=== PATIENT | male | born 1950 | race Caucasian/White ===

== ENCOUNTER 2025-10-09 05:53 | Emergency (ER) | payer OTHER ==
[2025-10-09] MEDS ORDERED: Ketamine 50 MG/ML (10ML VIAL) ONE (06:00)
[2025-10-09 06:16] LABS: #Basophils 0.2 thou/uL (0.0-0.2); #Eosinophils 0.2 thou/uL (0.0-0.7); #Lymphocytes 5.3 thou/uL (1.20-3.40); #Monocytes 0.5 thou/uL (0.11-0.59); #Neutrophils 6.7 thou/uL (1.40-6.50); %Basophils 1.5 % (0.0-1.0); %Eosinophils 1.4 % (0.0-10.0); %Lymphocytes 41.6 % (21.0-51.0); %Monocytes 3.6 % (0.0-10.0); %Neutrophils 52.0 % (42.0-75.0); Hematocrit 40.2 % (42.0-52.0); Hemoglobin 12.7 g/dL (14.0-18.0); Mean Corpuscular Hemoglobin 30.6 pg (27.0-31.0); Mean Corpuscular Volume 97.1 fl (78.0-98.0); Platelet Count 110 10x3/uL (130-400); Red Blood Cell (RBC) Count 4.13 mill/uL (4.70-6.10); White Blood Cell (WBC) Count 12.8 10x3/uL (4.8-10.8)
[2025-10-09 06:23] LABS: Anisocytosis SLIGHT = 6-15 cells (100X) (0-5/hpf)
[2025-10-09 06:24] LABS: Platelet Adequacy Comment Appears Decreased
[2025-10-09 06:25] LABS: Bicarbonate (HCO3v) 21.2 mmol/L (22.0-28.0); CO2 Tension (PvCO2) 115.4 mmHg (42.0-51.0); Calcium, Ionized 1.19 mmol/L (1.15-1.33); Chloride 112 mmol/L (98-107); Hemoglobin - Calc 13.8 g/dL (14.0-18.0); Potassium 5.0 mmol/L (3.5-5.1); Sodium 141 mmol/L (138-145); T. Carbon Dioxide 24.7 mmol/L (22.0-28.0); vO2 Saturation-calc 75.5 % (60.0-85.0)
[2025-10-09 06:26] LABS: ALT (SGPT) 135 U/L (Less than 45); AST (SGOT) 148 U/L (11-34); Albumin 3.5 g/dL (3.1-4.5); Alkaline Phosphatase 57 U/L (40-110); Anion Gap 26 mmol/L (10-20); BUN (Urea Nitrogen) 15 mg/dL (8.4-25.7); Bilirubin, Total 0.3 mg/dL (0.3-1.2); Calc. Creatinine Clearance 0 mL/min (70-130); Calcium 8.4 mg/dL (7.8-10.44); Carbon Dioxide 16 mmol/L (23-31); Chloride 108 mmol/L (98-107); Globulin 2.7 g/dL (2.4-3.5); Glucose 322 mg/dL (83-110); Potassium 5.0 mmol/L (3.5-5.1); Sodium 145 mmol/L (136-145)
[2025-10-09 06:32] LABS: Troponin I 0.177 ng/mL (< 0.028)
[2025-10-09] MEDS ORDERED: Sodium Bicarb 50 MEQ/50 ML Abboject 8.4% SYRINGE ONE (09:00)
[2025-10-09] MEDS ORDERED: EPINEPHrine 1 MG/10 ML Abboject SYRINGE ONE (09:00)
== END 2025-10-09 06:55 | disposition short-term general hospital (02) ==
LOC: MADERS 05:53
DX: I46.9 Cardiac arrest, cause unspecified (principal); I10 Essential (primary) hypertension; I25.10 Atherosclerotic heart disease of native coronary artery without angina pectoris; E78.5 Hyperlipidemia, unspecified; K21.9 Gastro-esophageal reflux disease without esophagitis; I25.2 Old myocardial infarction; Z95.5 Presence of coronary angioplasty implant and graft; Z86.011 Personal history of benign neoplasm of the brain; Z79.899 Other long term (current) drug therapy; Z79.82 Long term (current) use of aspirin
CPT/HCPCS: 71045; 80053; 82330; 82435; 82803; 84132; 84295; 84484; 85014; 85025; 92950; 93005; 94760; J0165; J3490